=== PATIENT | male | born 1995 | race Caucasian/White ===

== ENCOUNTER 2022-12-21 09:10 | Emergency (ER) | payer MEDICAID ==
[~2022-12-21] VITALS: Ht 180.3 cm; Wt 81.6 kg
[2022-12-21 09:15] VITALS: BP_SYST 134; PULSE 107; RESP 18; TEMP 97.3; O2SAT 97
[2022-12-21 11:12] VITALS: BP_SYST 148; PULSE 88; RESP 18; TEMP 97.3; O2SAT 98
== END 2022-12-21 11:09 ==
LOC: SED 09:10
DX: M53.3 Sacrococcygeal disorders, not elsewhere classified (principal); W01.0XXA Fall on same level from slipping, tripping and stumbling without subsequent striking against object, initial encounter; Y93.89 Activity, other specified; Y92.89 Other specified places as the place of occurrence of the external cause; Y99.8 Other external cause status
CPT/HCPCS: 72170-TC; 72220-TC; 99284